=== PATIENT | male | born 1980 | race Caucasian/White ===

== ENCOUNTER 2016-06-04 21:00 | Emergency (ER) | payer MEDICAID ==
[~2016-06-04] VITALS: Ht 182.9 cm; Wt 83.9 kg
[2016-06-04 21:21] VITALS: BP 142/98
== END 2016-06-04 22:00 | disposition left against medical advice (07) ==
LOC: ER 21:06
DX: S80.261A Insect bite (nonvenomous), right knee, initial encounter (principal); Z53.21 Procedure and treatment not carried out due to patient leaving prior to being seen by health care provider; W57.XXXA Bitten or stung by nonvenomous insect and other nonvenomous arthropods, initial encounter; Y93.89 Activity, other specified; Y99.8 Other external cause status; Y92.89 Other specified places as the place of occurrence of the external cause